=== PATIENT | female | born 1965 | race Caucasian/White ===

== ENCOUNTER 2022-04-05 08:50 | Outpatient (CLI) | payer BC, MEDICARE | END 2022-04-05 08:51 | disposition home or self-care (01) | LOC: CSHMAMMO 08:50 | PROVIDERS: ATTEND Family Medicine | DX: T85.9XXA Unspecified complication of internal prosthetic device, implant and graft, initial encounter (principal); Z85.3 Personal history of malignant neoplasm of breast | CPT/HCPCS: 77066; G0279 ==

== ENCOUNTER 2025-07-11 14:03 | Outpatient (CLI) | payer MEDICARE | END 2025-07-11 14:04 | disposition home or self-care (01) | LOC: CSHMRI 14:03 | PROVIDERS: ATTEND Specialist | DX: M47.26 Other spondylosis with radiculopathy, lumbar region (principal) | CPT/HCPCS: 72148; 76014 ==